=== PATIENT | female | born 1990 | race Caucasian/White ===

== ENCOUNTER 2023-02-12 14:00 | Outpatient (CLI) | payer OTHER ==
--- NOTE | 2023-02-12 16:46 | XRAY Report ---
PROCEDURE: Forearm RT INDICATIONS: ARM PAIN RIGHT TECHNIQUE: 2 views of the forearm were acquired. COMPARISON: None FINDINGS: Bones: No fractures or dislocations. No suspicious bony lesions. Soft tissues: No suspicious soft tissue calcifications or masses. IMPRESSION: Normal right forearm. Reviewed by: Shayla Ayala MD on 02/12/2023 4:44 PM PDT Approved by: Shayla Ayala MD on 02/12/2023 4:44 PM PDT Station ID: [id number]
== END 2023-02-12 14:15 | disposition home or self-care (01) ==
LOC: DI.N 14:00
PROVIDERS: ATTEND Registered Nurse
DX: M79.601 Pain in right arm (principal)